=== PATIENT | male | born 1950 | race Caucasian/White ===

== ENCOUNTER 2021-05-31 13:27 | Day surgery (SDC) | payer MEDICARE, OTHER, SELFPAY ==
[2021-05-26 16:14] VITALS: BMI 22.9
--- NOTE | 2021-05-30 09:51 | HO.ANESPROP2 ---
Documented by User: Deisi Butcher NP 05/30/21 09:52 HPI - Anesthesia Eval Consult details Narrative: 71yo M for Colonoscopy [facility] Past Medical History Medical History Aortic root enlargement BPH (benign prostatic hyperplasia) History of nephrolithiasis Hx of abdominal pain Hx: UTI (urinary tract infection) Hypothyroid Kidney cysts Low back pain Mitral valve regurgitation JAYESH (obstructive sleep apnea) Surgical History Surgical History History of hemorrhoidectomy Hx of colonoscopy Hx of prostate biopsy Social History Social History Patient Tobacco Use Status: Former Tobacco user Quit Date: 1988 Use of substances other than those prescribed or required for medical reasons: No Have you been hit, kicked, punched, or otherwise hurt by someone within the past year? If so, by whom?: No Are you DNR?: No Advance Directives: No Advance Directives Information Provided: No Advance Directives on File: No Meds Allergies Allergy/AdvReac Type Severity Reaction Status Date / Time Penicillins Allergy Unknown Verified 05/26/21 15:52 Home Medications Medication Instructions Recorded Confirmed Last Taken Type Vitamin B-Complex 05/26/21 Unknown History aspirin 81 mg tablet,delayed 81 mg PO DAILY 05/26/21 05/26/21 Unknown History release cholecalciferol (vitamin D3) 125 125 mcg PO DAILY 05/26/21 05/26/21 Unknown History mcg (5,000 unit) tablet (Vitamin D3) levothyroxine 25 mcg tablet 25 mcg PO DAILY 05/26/21 05/26/21 Unknown History (Synthroid) naltrexone 50 mg tablet 50 mg PO DAILY 05/26/21 05/26/21 Unknown History omega-3 fatty acids-fish oil 684 cap PO 05/26/21 Unknown History mg-1,200 mg capsule,delayed release Exam Exam Date and Time: May 30, 2021 0951 Height,Weight and Vital Signs: Height 6 ft 1 in Weight 78.925 kg Assessment and Plan Assessment Anesthesia Assessment: Chart Reviewed Documented by User: Viv Bennett MD 05/31/21 14:05 [facility] Past Medical History Medical History Aortic root enlargement BPH (benign prostatic hyperplasia) History of nephrolithiasis Hx of abdominal pain Hx: UTI (urinary tract infection) Hypothyroid Kidney cysts Low back pain Mitral valve regurgitation JAYESH (obstructive sleep apnea) Family History Family history of problems with anesthesia: No Surgical History Surgical History History of hemorrhoidectomy Hx of colonoscopy Hx of prostate biopsy History of Problems with Anesthesia: No Social History Social History Patient Tobacco Use Status: Former Tobacco user Quit Date: 1988 Use of substances other than those prescribed or required for medical reasons: No Have you been hit, kicked, punched, or otherwise hurt by someone within the past year? If so, by whom?: No Are you DNR?: No Advance Directives: No Advance Directives Information Provided: No Advance Directives on File: No Meds Allergies Allergy/AdvReac Type Severity Reaction Status Date / Time Penicillins Allergy Unknown Verified 05/26/21 15:52 Home Medications Medication Instructions Recorded Confirmed Last Taken Type Vitamin B-Complex 05/26/21 Unknown History aspirin 81 mg tablet,delayed 81 mg PO DAILY 05/26/21 05/26/21 Unknown History release cholecalciferol (vitamin D3) 125 125 mcg PO DAILY 05/26/21 05/26/21 Unknown History mcg (5,000 unit) tablet (Vitamin D3) levothyroxine 25 mcg tablet 25 mcg PO DAILY 05/26/21 05/26/21 Unknown History (Synthroid) naltrexone 50 mg tablet 50 mg PO DAILY 05/26/21 05/26/21 Unknown History omega-3 fatty acids-fish oil 684 cap PO 05/26/21 Unknown History mg-1,200 mg capsule,delayed release Exam Airway Mallampati Class: II TM Dist: >3cm Neck ROM: Full Assessment and Plan Assessment Anesthesia Assessment: Anesthesia Plan Discussed Final Anesthetic Review Family History of Problems with Anesthesia: No History of Problems with Anesthesia: No NPO: Yes ASA Class: III Final Preanesthetic Review: No Changes in Pt Med Stat, Meds/Allgs Chart Reviewed, Consent Obtained/Reviewed and Anes Risks/Benef Reviewed Patient Risk: Intermediate Procedure Risk: Low Assessment/Block/Sedation in SS: Assess/Block/Sedation-SS Anesthetic Plan Anesthetic Plan: MAC: Disposition: Standard PACU
[2021-05-31 13:49] VITALS: BP 127/72; PULSE 79; RESP 16; TEMP 36.4; O2SAT 99
[2021-05-31] MEDS: Sodium Phosphate,Mono-Dibasic 133 ML ENEMA PR (14:05)
--- NOTE | 2021-05-31 14:08 | PC.NURSE ---
fleet enema performed. criss well .laying left lateral side.
[2021-05-31] MEDS: Lactated Ringers 1,000 ML 50 ML IVCONT (14:26)
--- NOTE | 2021-05-31 14:26 | PC.NURSE ---
yellow clear output after having a fleet enema. no solids visualized.
--- NOTE | 2021-05-31 14:31 | MHC.SHP ---
Pre-Procedural Eval Section A Date of Service: 05/31/21 The patient is an INPATIENT: No Changes since office visit: No Cold of Flu in the past 2 weeks, No New Medical Problems, No Changes in Medication and No Patient answered all questions The History & Physical has been completed within 30 days and I have reviewed it.: Yes Section B Chief Complaint: rectal pain Allergies: Allergies Allergy/AdvReac Type Severity Reaction Status Date / Time Penicillins Allergy Unknown Verified 05/26/21 15:52 Plan I have reviewed the history and physical and performed a pertinent physical examination on my patient. No changes have occurred unless specified.
--- NOTE | 2021-05-31 14:59 | PM.OP ---
Brief Operative Note Date of Service: 05/31/21 Pre-op diagnosis: screening, rectal pain Post-op diagnosis: same (colon polyp) Procedure: colonoscopy Surgeon: Markell Metcalf Anesthesia: MAC Was an Shotgun Shell Reprinting Unit Operator used for this Procedure?: No Estimated blood loss (mL): 3 Pathology: other (polyp 70 cm) Condition: stable Disposition: PACU
[2021-05-31 15:00] VITALS: BP 99/44; PULSE 78; RESP 16; TEMP 36.2; O2SAT 100
[2021-05-31 15:15] VITALS: BP 99/49; PULSE 79; RESP 16; O2SAT 99
[2021-05-31 15:30] VITALS: BP 104/53; PULSE 84; RESP 16; TEMP 36.2; O2SAT 99
--- NOTE | 2021-05-31 18:34 | OP_ITS ---
SURGEON: Markell Metcalf MD INDICATIONS: Rectal pain and prior history of adenomatous colon polyps. PREOPERATIVE DIAGNOSIS: POSTOPERATIVE DIAGNOSIS: PROCEDURE PERFORMED: Colonoscopy to the cecum with biopsy. ESTIMATED BLOOD LOSS: COMPLICATIONS: ANESTHESIA: ASSISTANTS: SPECIMENS: MEDICATIONS: Monitored anesthesia care. DESCRIPTION OF PROCEDURE: History and physical performed. The risks and benefits of the procedure were explained to the patient. Informed consent was obtained. The patient was placed in left lateral decubitus position. A digital rectal exam was performed and was found to be normal. The Olympus pediatric video colonoscope was introduced into the rectum and advanced to the cecum without difficulty. The cecum was identified by transillumination, palpation, and identification of ileocecal valve. Examination was performed and the scope was removed. He tolerated the procedure well and was taken to recovery area in stable condition. FINDINGS: The terminal ileum was not examined. The visualized colonic mucosa was normal. The quality of the prep was good. A single polyp measuring approximately 4 to 5 mm was identified at 70 cm from the anal verge and removed with biopsy forceps. No other polyps were identified. There was moderate diverticulosis in the sigmoid with diverticula scattered throughout the remainder of the colon. Retroflexed examination showed some internal hemorrhoids. IMPRESSION: Colon polyp. RECOMMENDATION: Follow up the biopsy results. MD JIMMY García/DIVINE / [id number]
== END 2021-05-31 15:56 | disposition home or self-care (01) ==
PROVIDERS: PCP Family Medicine; Visit Provider Internal Medicine Gastroenterology
PROC: 0DJD8ZZ Inspection of Lower Intestinal Tract, Via Natural or Artificial Opening Endoscopic (ICD-10-PCS; CPT 45378; principal; 2021-05-31 14:30)
DX: Z12.11 Encounter for screening for malignant neoplasm of colon (principal); K62.89 Other specified diseases of anus and rectum; D12.6 Benign neoplasm of colon, unspecified; K57.30 Diverticulosis of large intestine without perforation or abscess without bleeding; K64.8 Other hemorrhoids; Z86.010 Personal history of colon polyps; Z79.82 Long term (current) use of aspirin; Z88.0 Allergy status to penicillin
CPT/HCPCS: 45380; 88305

== ENCOUNTER 2023-04-26 10:15 | Outpatient (AMB) | payer MEDICARE, OTHER, SELFPAY ==
--- NOTE | 2023-04-26 10:24 | A.OFFVIS_ITS ---
Intake Vital Signs 04/26/23 10:32 Height 6 ft 1 in Weight 171 lb 8 oz BMI 22.6 BP 125/65 Blood Pressure Location Lt brachial Position Sitting Pulse 65 Intake Visit Reasons: gallstones Intake Note: Patient is seen in office for evaluation and treatment of gallstones. Patient c/o: 10 days ago RUQ pain, woke up with night sweats, pressure, at times radiates to the back, went to [facility] and had imaging done, denies nausea, vomit, diarrhea, constipation, has been experiencing changes in his bowls Manager Desktop Required: No Accompanied by: Family/Other Allergies Penicillins Allergy (Verified 04/26/23 10:33) Unknown Medication List - Last Reconciled 04/26/23 by Eran Pak MD cholecalciferol (vitamin D3) (Vitamin D3) 125 mcg PO DAILY levothyroxine (Synthroid) 25 mcg PO DAILY lorazepam 0.5 mg PO BID PRN metoprolol tartrate 25 - 50 mg PO naltrexone 50 mg PO DAILY omega-3 fatty acids-fish oil 684-1,200 mg caps PO rivaroxaban (Xarelto) 20 mg PO DAILY trazodone 50 mg PO BEDTIME [Vitamin B-Complex ] HPI HPI Comments History of Present Illness Details 73-year-old male patient presenting with complaints of abdominal pain in the right upper quadrant radiating into the right associated with nausea without vomiting. His initial attack occurred 04/15/2023. He subsequently presented to the [facility] for further evaluation. Workup included a CT abdomen and pelvis which revealed a normal gallbladder without wall thickening or calcified gallstones. Subsequent ultrasound did reveal sludge and small stones within the gallbladder with a negative sonographic Romero sign. He reports that the pain is persisted but has gradually improved o ling the past week. He denies any inciting events or prior attacks. His past medical history significant for atrial fibrillation for which he is on anticoagulation. [facility] Medical History Aortic root enlargement BPH (benign prostatic hyperplasia) History of nephrolithiasis Hx of abdominal pain Hx: UTI (urinary tract infection) Hypothyroid Kidney cysts Low back pain Mitral valve regurgitation JAYESH (obstructive sleep apnea) Surgical History History of hemorrhoidectomy Hx of colonoscopy Hx of prostate biopsy Social History Patient Tobacco Use Status: Former Tobacco user Quit Date: 1988 Review of Systems Const All systems reviewed & are unremarkable except as noted in HPI and below Card Reports irregular heart rhythm GI Details: Acolic stool Reports as per HPI and Reports abdominal pain Details: No jaundice Physical Exam Vital Signs: Last Vital Signs Pulse 65 04/26/23 10:32 BP 125/65 04/26/23 10:32 BMI result Body Mass Index 22.6 Const General: comfortable and no acute distress Nutritional Appearance: well nourished Orientation/consciousness: patient oriented x3 Limitations: no limitations Resp Effort & Inspection: normal respiratory effort, no audible wheezes, no cough and no respiratory distress GI Inspection: Yes normal to inspection Palpation (GI): Soft to palpation and Tenderness to palpation present (GI) in the RLQ; Romero's sign negative, with no rebound tenderness and Rovsing's sign negative Percussion: Yes normal to percussion Rectal Exam - Male: Yes deferred Skin Other: Normal color Lesions: no lesions Rashes: no rashes Neuro General: patient oriented x3 Extrem General: Yes normal to inspection Assessment & Plan Assessment & Plan (1) Biliary colic: Code(s): K80.50 - Calculus of bile duct without cholangitis or cholecystitis without obstruction Plan 73-year-old male patient presenting with complaints of abdominal pain in the right upper quadrant, evaluated at [facility] and found to have biliary sludge and small gallstones. He continues to have some mild abdominal discomfort in the right upper quadrant and right lower quadrant. On examination is abdomen is soft and nondistended with negative Romero sign and minimal tenderness in the right lower quadrant. Findings are suggestive of a biliary colic in certainly would be an indication for laparoscopic cholecystectomy on an elective basis. I reviewed the pathophysiology and treatment options including observation verses laparoscopic cholecystectomy. I also reviewed the procedure, risks and alternatives in detail. He will think about his options and call should he wish to schedule surgery. He is also welcome to return or call for further discussion. Coding Level of Care Code New Pt Level 4 (54144) Diagnoses Biliary colic K80.50 Time Spent (min) 45
[2023-04-26 10:32] VITALS: BP 125/65; PULSE 65; BMI 22.6
== END 2023-04-26 11:04 | disposition home or self-care (01) ==
PROVIDERS: PCP Family Medicine; Visit Provider Surgery
DX: K80.50 Calculus of bile duct without cholangitis or cholecystitis without obstruction (principal)
CPT/HCPCS: 99204

== ENCOUNTER → 2023-04-26 10:15 | Outpatient (BNVA) | payer MEDICARE, OTHER, SELFPAY | PROVIDERS: PCP Family Medicine; Visit Provider Surgery | DX: K80.50 Calculus of bile duct without cholangitis or cholecystitis without obstruction (principal) | CPT/HCPCS: 99202 ==

== ENCOUNTER 2023-05-27 07:38 | Day surgery (SDC) | payer MEDICARE, OTHER, SELFPAY ==
[2023-05-23 10:25] VITALS: BMI 22.7
--- NOTE | 2023-05-24 10:30 | HO.ANESPROP2 ---
Documented by User: Deisi Butcher NP 05/24/23 12:39 HPI - Anesthesia Eval Consult details Narrative: 73yo M for Cholecystectomy Laparoscopic,poss open Cardiac optimized, ok to hold xarelto Xarelto for PAF PMFSH Active Problems Active Problems: All Active Problems (Updated 05/23/23 @ 10:21 by Mali De Paz RN) Biliary colic (Acute) Past Medical History Medical History GERD (gastroesophageal reflux disease) PAF (paroxysmal atrial fibrillation) Low back pain Hypothyroid Aortic root enlargement Mitral valve regurgitation JAYESH (obstructive sleep apnea) Kidney cysts History of nephrolithiasis BPH (benign prostatic hyperplasia) Hx: UTI (urinary tract infection) Hx of abdominal pain Family History Family history of problems with anesthesia: No Surgical History Surgical History Hx of colonoscopy History of hemorrhoidectomy Hx of prostate biopsy History of Problems with Anesthesia: No Social History Social History Patient Tobacco Use Status: Former Tobacco user Quit Date: 1988 Are you DNR?: No Advance Directives: No Advance Directives Information Provided: Yes Nutrition Risks: No Nutritional Risk Meds Allergies Allergy/AdvReac Type Severity Reaction Status Date / Time Penicillins Allergy Unknown states Verified 05/27/23 07:55 parent allergic-has never taken PCN himself tamsulosin Allergy Unknown Unknown Verified 05/27/23 07:55 Home Medications Medication Instructions Recorded Confirmed Last Taken Type Vitamin B-Complex 05/26/21 04/26/23 Unknown History cholecalciferol (vitamin D3) 125 125 mcg PO DAILY 05/26/21 05/23/23 Unknown History mcg (5,000 unit) tablet (Vitamin D3) naltrexone 50 mg tablet 50 mg PO DAILY 05/26/21 05/26/21 Unknown History omega-3 fatty acids-fish oil 684 1 cap PO DAILY 05/26/21 05/23/23 Unknown History mg-1,200 mg capsule,delayed release lorazepam 0.5 mg tablet 0.5 mg PO BID PRN Anxiety 04/26/23 05/23/23 Unknown History metoprolol tartrate 25 mg tablet 25 - 50 mg PO BID PRN Atrial 04/26/23 05/23/23 Unknown History Fibrillation rivaroxaban 20 mg tablet (Xarelto) 20 mg PO DAILY 04/26/23 05/23/23 Unknown History trazodone 50 mg tablet 50 mg PO BEDTIME 04/26/23 05/23/23 Unknown History levothyroxine 37.5 mcg capsule 37.5 mcg PO DAILY 05/23/23 05/23/23 05/27/23 History Exam Exam Date and Time: May 24, 2023 1030 Height,Weight and Vital Signs: Height 6 ft 1 in Weight 78.018 kg Pertinent Lab Results Pertinent Lab Results: CBC and BMP 04/2023 from outside facility WNL Narrative Narrative: EKG 04/2023 from [facility] ER note SB @ 55 ? LAE ECHO 08/2022 LV is nml in size and wall thickness Overall LV systolic function is nml LVEF visually estimated at 60-65% No definite wall motion abnormalities. Indeterminate diastolic function Mild dilation of aortic root and ascending aorta RV nml in size and function US abdomen 04/2023 Multiple gallstones and biliary sludge. No acute cholycystitis Assessment and Plan Assessment Anesthesia Assessment: Chart Reviewed Final Anesthetic Review Family History of Problems with Anesthesia: No History of Problems with Anesthesia: No Documented by User: Eduardo Wiseman MD 05/27/23 08:17 [facility] Past Medical History Medical History GERD (gastroesophageal reflux disease) PAF (paroxysmal atrial fibrillation) Low back pain Hypothyroid Aortic root enlargement Mitral valve regurgitation JAYESH (obstructive sleep apnea) Kidney cysts History of nephrolithiasis BPH (benign prostatic hyperplasia) Hx: UTI (urinary tract infection) Hx of abdominal pain Surgical History Surgical History Hx of colonoscopy History of hemorrhoidectomy Hx of prostate biopsy Social History Social History Patient Tobacco Use Status: Former Tobacco user Quit Date: 1988 Are you DNR?: No Advance Directives: No Advance Directives Information Provided: Yes Nutrition Risks: No Nutritional Risk Meds Allergies Allergy/AdvReac Type Severity Reaction Status Date / Time Penicillins Allergy Unknown states Verified 05/27/23 07:55 parent allergic-has never taken PCN himself tamsulosin Allergy Unknown Unknown Verified 05/27/23 07:55 Home Medications Medication Instructions Recorded Confirmed Last Taken Type Vitamin B-Complex 05/26/21 04/26/23 Unknown History cholecalciferol (vitamin D3) 125 125 mcg PO DAILY 05/26/21 05/23/23 Unknown History mcg (5,000 unit) tablet (Vitamin D3) naltrexone 50 mg tablet 50 mg PO DAILY 05/26/21 05/26/21 Unknown History omega-3 fatty acids-fish oil 684 1 cap PO DAILY 05/26/21 05/23/23 Unknown History mg-1,200 mg capsule,delayed release lorazepam 0.5 mg tablet 0.5 mg PO BID PRN Anxiety 04/26/23 05/23/23 Unknown History metoprolol tartrate 25 mg tablet 25 - 50 mg PO BID PRN Atrial 04/26/23 05/23/23 Unknown History Fibrillation rivaroxaban 20 mg tablet (Xarelto) 20 mg PO DAILY 04/26/23 05/23/23 Unknown History trazodone 50 mg tablet 50 mg PO BEDTIME 04/26/23 05/23/23 Unknown History levothyroxine 37.5 mcg capsule 37.5 mcg PO DAILY 05/23/23 05/23/23 05/27/23 History Exam Airway Mallampati Class: II TM Dist: >3cm Neck ROM: Limited Heart: rrr Lungs: cta Assessment and Plan Assessment Anesthesia Assessment: Anesthesia Plan Discussed Final Anesthetic Review NPO: Yes ASA Class: II Final Preanesthetic Review: No Changes in Pt Med Stat, Meds/Allgs Chart Reviewed and Consent Obtained/Reviewed Patient Risk: Intermediate Procedure Risk: Intermediate Anesthetic Plan Anesthetic Plan: GA and Agree w/ Assess. and Plan Disposition: Standard PACU
[2023-05-27] VITALS (7 sets, daily range): BP systolic 103–134; BP diastolic 56–70; PULSE 55–65; RESP 10–18; TEMP 36.3–36.6; O2SAT 95–100
[2023-05-27] MEDS: Lactated Ringers 1,000 ML 100 ML IVCONT (08:03)
--- NOTE | 2023-05-27 09:11 | MHC.SHP ---
Pre-Procedural Eval Section A Date of Service: 05/27/23 The patient is an INPATIENT: No Changes since office visit: Yes Patient answered all questions; No Cold of Flu in the past 2 weeks, No New Medical Problems and No Changes in Medication The History & Physical has been completed within 30 days and I have reviewed it.: Yes Section B Chief Complaint: Calculus of bile duct without cholangitis or kaylin Details of Present Illness: No change in abdominal symptoms Relevant Family History (Specify if Yes): No Relevant Social History: None Present Medications: see Short Stay Collaborative assessment Medical History: No relevant PMH History of Previous Operations: No relevant previous surgery Allergies: Allergies Allergy/AdvReac Type Severity Reaction Status Date / Time Penicillins Allergy Unknown states Verified 05/27/23 07:55 parent allergic-has never taken PCN himself tamsulosin Allergy Unknown Unknown Verified 05/27/23 07:55 Review of Systems Sugical H&P ROS: Negative: Constitution, Cardiovascular, Respiratory, Neurological, Psychiatric, Hem-Onc, Allergic/Immunologic, Genitourinary, Musculoskeletal, Integumentary, Endocrine and Eyes/Ears/Nose/Throat and Yes, Specify: Gastrointestinal (abdominal pain) Exam Surgical H&P Exam: Normal: HEENT, Normal: Heart, Normal: Lungs, Normal: Extremities, Normal: Abdomen, Normal: Skin and Normal: Neurological Plan Diagnosis/Plan: Unchanged I have reviewed the history and physical and performed a pertinent physical examination on my patient. No changes have occurred unless specified. Time Spent With Patient Time: Total time managing care of this patient today ____ minutes.
--- NOTE | 2023-05-27 10:17 | W.PM.OPN ---
Operative Note Operative Note Date of Service: 05/27/23 Narrative: Preoperative diagnosis: Biliary colic Postoperative diagnosis: Same Procedure: Laparoscopic cholecystectomy Surgeon: Eran Pak MD [employer] Specialist: HOLLAND Hansen Anesthesia: General endotracheal Indications for procedure: 73-year-old male patient with persistent episodes of right upper quadrant abdominal pain with associated nausea vomiting found to have small gallstones or sludge within the gallbladder. Findings were consistent with biliary colic. He presents today for laparoscopic cholecystectomy. Operative findings: Evidence of chronic cholecystitis with dense adhesions to the undersurface of the gallbladder. Specimen: gallbladder Estimated blood loss: Less than 2 mL Complications: None Procedure details: Patient was brought to the OR and placed in a supine position. After administering general anesthesia the patient's abdomen was prepped with ChloraPrep and draped in a sterile fashion. Local anesthesia consisting of 0.5% Sensorcaine with epinephrine was infiltrated in a periumbilical region. A 5 mm incision was made above the umbilicus in a transverse fashion. The Veress needle was then inserted while elevating abdominal cavity with towel clips. After positive drop test the abdomen was insufflated to a pressure of 15 mm of mercury. The Veress needle was then removed and a 5 mm trocar inserted. The camera was inserted in the abdomen explored. A 12 mm trocar was then placed in the epigastrium. Two 5 mm trocars placed in the right upper quadrant by the psychologist research assistant. The patient was placed in reverse Trendelenburg positioning and rotated to the left. The gallbladder was grasped with the fundus and retracted cephalad by the psychologist research assistant. The infundibulum was then grasped and retracted away from the liver bed, also by the psychologist research assistant. The Dolphin dissected was then used by the surgeon to dissect the peritoneum off the infundibulum to reveal the junction with the cystic duct. Cystic artery was noted slightly medial and posterior to the cystic duct. After obtaining a critical view the cystic duct was doubly clipped and divided. The cystic artery was then doubly clipped and divided. The gallbladder was then dissected off the liver bed using electrocautery with an L hook. Hemostasis was assured all times using the electrocautery. When the gallbladder is completely dissected off the liver bed was placed in an Endo-Catch bag and brought out through the epigastric incision. The gallbladder was sent to pathology for further examination. The abdomen was then re-examined. The liver bed was irrigated and suctioned dry. No bleeding or bile leak could be identified. CO2 was then evacuated and all trocars removed. Fascia was closed at the epigastric incision using a [id number] 0 Polysorb suture. Skin was closed in all incisions using a subcuticular 4 0 Polysorb suture by both the surgeon and psychologist research assistant. Sterile dressings consisting of Steri-Strips, 2 x 2 gauze, and Tegaderm were then applied. The patient tolerated the procedure well. Sponge instrument and needle counts reported as correct. The patient was transferred to PACU in stable condition.
== END 2023-05-27 14:31 | disposition home or self-care (01) ==
PROVIDERS: PCP Family Medicine; Visit Provider Surgery
PROC: 0FT44ZZ Resection of Gallbladder, Percutaneous Endoscopic Approach (ICD-10-PCS; CPT 47562; principal; 2023-05-27 09:10)
DX: K81.1 Chronic cholecystitis (principal); K82.8 Other specified diseases of gallbladder; G47.33 Obstructive sleep apnea (adult) (pediatric); I48.0 Paroxysmal atrial fibrillation; Z79.899 Other long term (current) drug therapy; Z88.0 Allergy status to penicillin; Z87.891 Personal history of nicotine dependence
CPT/HCPCS: 47562; 88304; J0131; J0690; J1885; J2250; J2405; J3010

== ENCOUNTER → 2023-05-27 07:38 | Outpatient (BNV) | payer MEDICARE, OTHER, SELFPAY | PROVIDERS: PCP Family Medicine; Visit Provider Surgery | DX: K80.50 Calculus of bile duct without cholangitis or cholecystitis without obstruction (principal) | CPT/HCPCS: 47562 ==

== ENCOUNTER 2023-06-06 15:01 | Outpatient (AMB) | payer MEDICARE, OTHER, SELFPAY ==
--- NOTE | 2023-06-06 15:04 | MHC.OFFVIS ---
Intake Vital Signs 06/06/23 15:12 Height 6 ft 1 in Weight 174 lb 4 oz BMI 23.0 BP 123/69 Blood Pressure Location Lt brachial Position Sitting Pulse 77 Intake Visit Reasons: S/P lap kaylin Intake Note: Patient is seen in office for post op assessment post laparoscopic cholecystectomy. Patient c/o: admits to pain in the upper abdomen incision, gas, denies redness, swelling, nausea, vomit, diarrhea, constipation Pantomimist Required: No Accompanied by: Self / Same As Patient Allergies Penicillins Allergy (Unknown, Verified 06/06/23 15:12) states parent allergic-has never taken PCN himself tamsulosin Allergy (Unknown, Verified 06/06/23 15:12) Unknown Medication List - Last Reconciled 06/06/23 by Eran Pak MD cholecalciferol (vitamin D3) (Vitamin D3) 125 mcg PO DAILY levothyroxine 37.5 mcg PO DAILY lorazepam 0.5 mg PO BID PRN metoprolol tartrate 25 - 50 mg PO BID PRN omega-3 fatty acids-fish oil 684-1,200 mg 1 cap PO DAILY oxycodone 5 mg PO Q6H PRN rivaroxaban (Xarelto) 20 mg PO DAILY trazodone 50 mg PO BEDTIME [Vitamin B-Complex ] HPI HPI Comments History of Present Illness Details 73-year-old male patient returning 1 week following laparoscopic cholecystectomy performed on 04/29/2023. He tolerated the procedure well but does note some soreness in the right upper quadrant on occasion. He denies nausea, vomiting, diarrhea or constipation. He is tolerating a regular diet without increased pain. There has been no bleeding or discharge from his incisions. [facility] Medical History GERD (gastroesophageal reflux disease) PAF (paroxysmal atrial fibrillation) Low back pain Hypothyroid Aortic root enlargement Mitral valve regurgitation JAYESH (obstructive sleep apnea) Kidney cysts History of nephrolithiasis BPH (benign prostatic hyperplasia) Hx: UTI (urinary tract infection) Hx of abdominal pain Surgical History Hx laparoscopic cholecystectomy (05/27/23) Hx of colonoscopy History of hemorrhoidectomy Hx of prostate biopsy Social History Patient Tobacco Use Status: Former Tobacco user Quit Date: 1988 Physical Exam Vital Signs: Last Vital Signs Pulse 77 06/06/23 15:12 BP 123/69 06/06/23 15:12 BMI result Body Mass Index 23.0 Const General: healthy appearing Nutritional Appearance: well nourished Orientation/consciousness: patient oriented x3 Limitations: no limitations Eyes Sclerae: sclerae normal GI Other: Trocar incisions are clean, dry, and intact. No evidence of hernia or infection. Steri-Strips intact. Skin Other: Warm, dry, no rash, normal color Neuro General: patient oriented x3 Extrem Other: No peripheral edema Assessment & Plan Assessment & Plan (1) Biliary colic: Code(s): K80.50 - Calculus of bile duct without cholangitis or cholecystitis without obstruction Plan 73-year-old male patient status post laparoscopic cholecystectomy for biliary colic returning 1 week postop. His wounds are clean and intact without evidence of infection. I recommended he avoid lifting greater than 10 lb for the next week after which he may resume normal activity. He may walk ad michael. He should follow up as needed. Coding Level of Care Code Global (86424) Diagnoses Biliary colic K80.50
[2023-06-06 15:12] VITALS: BP 123/69; PULSE 77; BMI 23.0
== END 2023-06-06 15:31 | disposition home or self-care (01) ==
PROVIDERS: PCP Family Medicine; Visit Provider Surgery
DX: K80.50 Calculus of bile duct without cholangitis or cholecystitis without obstruction (principal)
CPT/HCPCS: 99024

== ENCOUNTER → 2023-06-06 15:01 | Outpatient (BNVA) | payer MEDICARE, OTHER, SELFPAY | PROVIDERS: PCP Family Medicine; Visit Provider Surgery ==

== ENCOUNTER 2023-07-16 14:40 | Outpatient (AMB) | payer MEDICARE, OTHER, SELFPAY ==
--- NOTE | 2023-07-16 14:44 | MHC.OFFVIS ---
Intake Vital Signs 07/16/23 14:53 Height 6 ft 1 in Weight 171 lb 8 oz BMI 22.6 BP 135/63 Blood Pressure Location Lt brachial Position Sitting Pulse 62 Intake Visit Reasons: ongoing pain Intake Note: Patient is seen in office for ongoing pain, post lap kaylin. Patient c/o: admits to pain, pain moves around sometimes is accompanied by slight nausea, denies vomit, diarrhea, consitpaiton or other concerns Live Study Manager Required: No Accompanied by: Self / Same As Patient Allergies Penicillins Allergy (Unknown, Verified 07/16/23 14:53) states parent allergic-has never taken PCN himself tamsulosin Allergy (Unknown, Verified 07/16/23 14:53) Unknown HPI HPI Comments History of Present Illness Details Patient returns following a laparoscopic cholecystectomy performed on 05/27/2023 with a diagnosis of chronic cholecystitis. Operative findings did reveal adhesions to the gallbladder with multiple small gallstones suggestive of chronic cholecystitis due to cholelithiasis. Postoperatively he continues to have pain in the right upper quadrant radiating into the back with also complaints of pain in the lower abdomen as well. He has stopped the psyllium fiber which did seem to help to some degree but not completely. He also cut out nuts and seeds from his diet. He reports daily bowel movements which are normal without constipation. He denies fever or chills. The pain is constant but occasionally will increase or decrease in severity. There is no change in the pain associated with eating. [facility] Medical History GERD (gastroesophageal reflux disease) PAF (paroxysmal atrial fibrillation) Low back pain Hypothyroid Aortic root enlargement Mitral valve regurgitation JAYESH (obstructive sleep apnea) Kidney cysts History of nephrolithiasis BPH (benign prostatic hyperplasia) Hx: UTI (urinary tract infection) Hx of abdominal pain Surgical History Hx laparoscopic cholecystectomy (05/27/23) Hx of colonoscopy History of hemorrhoidectomy Hx of prostate biopsy Social History Patient Tobacco Use Status: Former Tobacco user Quit Date: 1988 Physical Exam Vital Signs: Last Vital Signs Pulse 62 07/16/23 14:53 BP 135/63 07/16/23 14:53 BMI result Body Mass Index 22.6 Const General: no acute distress Nutritional Appearance: thin Orientation/consciousness: patient oriented x3 Limitations: no limitations Eyes Sclerae: sclerae normal (No scleral icterus) Resp Other: Breathing comfortably on room air, no respiratory distress GI Other: Well-healed trocar incisions without evidence of a hernia. Abdomen is soft with tenderness in the right upper quadrant, left lower quadrant and right lower quadrant. There is no guarding, rebound, or rigidity. No palpable mass or hepatosplenomegaly appreciated. Skin Other: Warm, dry, no rash, normal color. Neuro General: patient oriented x3 Extrem Other: No peripheral edema Assessment & Plan Assessment & Plan (1) Diffuse abdominal pain: Code(s): R10.84 - Generalized abdominal pain Plan 73-year-old male patient status post laparoscopic cholecystectomy on 05/27/2023 with persistent right upper quadrant abdominal pain radiating to the back. His abdominal exam is benign but there is elicited tenderness in the right upper quadrant and lower quadrants. There is no evidence of intra-abdominal infection to explain the abdominal pain. In addition no hernias could be identified. I recommended further evaluation with CT abdomen and pelvis. Patient has requested CT be performed at [facility]. He will obtain a disc return following the study for follow-up examination and review of CT. Orders: Orders CT abdomen pelvis w IV con Today R10.84 - Generalized abdominal pain Coding Level of Care Code Global (24412) Diagnoses Diffuse abdominal pain R10.84
[2023-07-16 14:53] VITALS: BP 135/63; PULSE 62; BMI 22.6
== END 2023-07-16 15:15 | disposition home or self-care (01) ==
PROVIDERS: PCP Family Medicine; Visit Provider Surgery
DX: R10.84 Generalized abdominal pain (principal)
CPT/HCPCS: 99024

== ENCOUNTER → 2023-07-16 14:40 | Outpatient (BNVA) | payer MEDICARE, OTHER, SELFPAY | PROVIDERS: PCP Family Medicine; Visit Provider Surgery ==

== ENCOUNTER 2023-08-15 09:52 | Outpatient (AMB) | payer MEDICARE, OTHER, SELFPAY ==
--- NOTE | 2023-08-15 09:54 | A.OFFVIS_ITS ---
Intake Vital Signs 08/15/23 10:01 Height 6 ft Weight 168 lb 4 oz BMI 22.8 BP 115/68 Blood Pressure Location Lt brachial Position Sitting Pulse 74 Intake Visit Reasons: s/p lap kaylin, CT results Intake Note: Patient is seen in office for CT scan results, post laparoscopic cholecystectomy. Pt c/o: here for results, no changes since last visit Ct scan:08/05/23@ [facility] [place] surgery: 05/27/2023 Form Raiser Required: No Accompanied by: Self / Same As Patient Allergies Penicillins Allergy (Unknown, Verified 08/15/23 10:02) states parent allergic-has never taken PCN himself tamsulosin Allergy (Unknown, Verified 08/15/23 10:02) Unknown Medication List - Last Reconciled 08/15/23 by Eran Pak MD cholecalciferol (vitamin D3) (Vitamin D3) 125 mcg PO DAILY levothyroxine 37.5 mcg PO DAILY lorazepam 0.5 mg PO BID PRN metoprolol tartrate 25 - 50 mg PO BID PRN omega-3 fatty acids-fish oil 684-1,200 mg 1 cap PO DAILY oxycodone 5 mg PO Q6H PRN rivaroxaban (Xarelto) 20 mg PO DAILY trazodone 50 mg PO BEDTIME [Vitamin B-Complex ] HPI HPI Comments History of Present Illness Details Patient returns to review the results of his recent CT abdomen and pelvis performed [facility]. Overall CT revealed no significant findings. There was a slight increase in stool burden in the colon but no ductal dilatation, fluid collections or evidence of bile leak. Patient denies constipation, nausea or vomiting. He is eating well and has a very good appetite. Overall he feels slightly improved from his prior examination. [facility] Medical History GERD (gastroesophageal reflux disease) PAF (paroxysmal atrial fibrillation) Low back pain Hypothyroid Aortic root enlargement Mitral valve regurgitation JAYESH (obstructive sleep apnea) Kidney cysts History of nephrolithiasis BPH (benign prostatic hyperplasia) Hx: UTI (urinary tract infection) Hx of abdominal pain Surgical History Hx laparoscopic cholecystectomy (05/27/23) Hx of colonoscopy History of hemorrhoidectomy Hx of prostate biopsy Social History Patient Tobacco Use Status: Former Tobacco user Quit Date: 1988 Physical Exam Const General: comfortable and no acute distress Nutritional Appearance: well nourished Resp Effort & Inspection: normal respiratory effort Assessment & Plan Assessment & Plan (1) Biliary colic: Code(s): K80.50 - Calculus of bile duct without cholangitis or cholecystitis without obstruction Plan Patient returns for evaluation of postoperative pain after laparoscopic ch olecystectomy biliary colic. Overall his symptoms are improving slowly. CT revealed no significant findings to indicate a cause of the abdominal pain. No bile leak, fluid collection or other suspicious findings were identified. A slight increased stool burden was noted although the patient is not constipated. Recommend continued observation with follow-up as needed. Coding Level of Care Code Global (00029) Diagnoses Biliary colic K80.50
[2023-08-15 10:01] VITALS: BP 115/68; PULSE 74; BMI 22.8
== END 2023-08-15 10:16 | disposition home or self-care (01) ==
PROVIDERS: PCP Family Medicine; Visit Provider Surgery
DX: K80.50 Calculus of bile duct without cholangitis or cholecystitis without obstruction (principal)
CPT/HCPCS: 99024

== ENCOUNTER → 2023-08-15 09:52 | Outpatient (BNVA) | payer MEDICARE, OTHER, SELFPAY | PROVIDERS: PCP Family Medicine; Visit Provider Surgery | DX: K80.50 Calculus of bile duct without cholangitis or cholecystitis without obstruction (principal) | CPT/HCPCS: 99212 ==